=== PATIENT | female | born 1945 | race Caucasian/White ===

== ENCOUNTER 2020-06-24 12:45 | Observation (INO) | payer MEDICARE ==
[~2020-06-24] VITALS: Ht 154.9 cm; Wt 83.0 kg
[~2020-06-24 12:45] MED LIST: ASPIR 8181 MG PO; ATENOLOL50 MG PO; AZO CRANBERRY1 EACH PO; FENOFIBRATE160 MG PO; FUROSEMIDE40 MG PO; HYDROCHLOROTHIA25 MG PO; MIRAPEX0.25 MG PO; MYRBETRIQ50 MG PO; OXYBUTYNIN CHLOR5 MG PO; POTASSIUM CHLO20 ME1 PO; SIMVASTATIN40 MG PO; SMZ/TMP PO; [UNRECOGNIZED DRUG - OTHER] PO
--- OUTSIDE RECORDS SUMMARY | 2020-06-24 13:19 | XMS REPORT | Clinical Summary ---
Author Author [facility] Organization [facility] Address Unknown Phone Unavailable Care Team Providers Care Accounts Clerk Name Role Phone Napoleon Ford MD PCP Allergies No Known Active Allergies Medications End Date Status Medication Sig Dispensed Refills Start Date Active digOXIN (LANOXIN) 125 mcg Take 125 mcg 0 (0.125 mg) tablet by mouth 0 daily. Active atenoloL-chlorthalidone daily. 0 (TENORETIC) 50-25 mg per 0 tablet Active furosemide (LASIX) 40 mg Take 40 mg by 0 tablet mouth every other day. Active aspirin (ECOTRIN) 81 MG Take 81 mg by 0 enteric coated tablet mouth daily. Active potassium chloride Take 20 mEq 0 (KLOR-CON) 20 mEq packet by mouth once. Active magnesium oxide 400 mg Take by mouth 0 magnesium tablet daily. Active TURMERIC ORAL Take by mouth 0 daily. Active glucosam/chond-msm1/C/man Take by mouth 0 g/bor daily. ([id number] COMPLEX ORAL) Active calcium carbonate Take by mouth 0 (CALCIUM 500 ORAL) daily. Active multivitamin (THERAGRAN) Take 1 tablet 0 tablet by mouth daily. Active Lactobac no.41/Bifidobact Take by mouth 0 no.7 (PROBIOTIC-10 ORAL) daily. Active cholecalciferol, vitamin Take 1,000 0 D3, 1,000 unit tablet Units by mouth daily. Active tiZANidine (ZANAFLEX) 2 Take 1 tablet 60 tablet 4 MG tablet PO at night 0 x3 days and then 2 tablets PO at night to continue. Active Problems Problem Noted Date Left leg pain 03/04/2020 Bilateral low back pain with left-sided sciatica 06/2020 Urinary incontinence 03/04/2020 Encounters Care Team Description Date Type Specialty Cathleen Bello MD Radiculopathy, lumbar region; Left leg pain; Other idiopathic peripheral autonomic neuropathy; Neuropathy of left peroneal nerve 03/31/2020 Procedure visit Neurology Stacie Caraballo MA Left leg pain 03/31/2020 Orders Only Neurology 03/31/2020 Travel Stacie Caraballo MA 03/16/2020 Telephone Neurology Stacie Caraballo MA Left leg pain (Primary Dx) 03/11/2020 Orders Only Neurology Cathleen Bello MD Left leg pain; Bilateral low back pain with left-sided sciatica, unspecified chronicity; Urinary incontinence, unspecified type 03/09/2020 Hospital Radiology Encounter 03/09/2020 Travel 03/06/2020 Travel Cathleen Bello MD Left leg pain (Primary Dx); Bilateral low back pain with left-sided sciatica, unspecified chronicity; Urinary incontinence, unspecified type 03/04/2020 Office Visit Neurology after 06/24/2019 Family History Medical History Relation Name Comments Diabetes Brother Heart attack Brother No Known Problems Father Diabetes Mother Heart attack Mother Diabetes Sister Heart attack Sister Relation Name Status Comments Brother Father Mother (Age 66) Sister Social History Date Tobacco Use Types Packs/Day Years Used Quit: 1999 Former Smoker Smokeless Tobacco: Never Used Drinks/Week oz/Week Comments Alcohol Use Never Alcohol Habits Answer Date Recorded How often do you have a drink containing alcohol? Never 03/03/2020 How many drinks containing alcohol do you have on No t asked a typical day when you are drinking? How often do you have six or more drinks on one Not asked occasion? Sex Assigned at Date Recorded Not on file Last Filed Vital Signs Reading Time Taken Comments Vital Sign 133/81 03/04/2020 10:18 AM CDT Blood Pressure 66 03/04/2020 10:18 AM CDT Pulse - - Temperature - - Respiratory Rate - - Oxygen Saturation - - Inhaled Oxygen Concentration 83 kg (183 lb) 03/04/2020 10:18 AM CDT Weight 154.9 cm (5' 1") 03/04/2020 10:18 AM CDT Height 34.58 03/04/2020 10:18 AM CDT Body Mass Index Plan of Treatment Care Team Description Date Type Specialty Cathleen Bello MD [address] [address] [phone] 07/28/2020 Office Visit Neurology Health Maintenance Due Date Last Done Comments BREAST CANCER SCREENING 1995 COLONOSCOPY SCREENING 1995 SHINGLES VACCINES (#1) 1995 65+ PNEUMOCOCCAL VACCINE 2010 (1 of 1 - PPSV23) INFLUENZA VACCINE 04/25/2020 Procedures Comments Procedure Name Priority Date/Time Associated Diag nosis CT LUMBAR SPINE WO Routine 03/09/2020 Left leg pa in CONTRAST 6:01 PM CDT Bilateral low back pain with left-sided sciatica, unspecified chronicity Urinary incontinence, unspecified type after 06/24/2019 Results * CT Lumbar Spine Wo Contrast (03/09/2020 6:01 PM CDT) Specimen Narrative Performed At EXAMINATION: CT LUMBAR SPINE WO CONTRAST HM RADIAN T COMPARISON: None CLINICAL HISTORY: M79.605 Pain in lef t leg, M54.42 Lumbago with sciatica left side, Left L5 radiculopathy lo w back pain. COMMENTS: Axial noncontrast CT scan s lices of the lumbar spine were obtained. Sagittal and coronal reconstructions we re obtained. CT imaging was performed with iterative reconstruction technique and/or automated exposure control to reduce ra diation dose. FINDINGS: L5-S1 shows mild vacuum dis c. There is moderate facet disease ligament flavum thickening. There is mi ld disc bulge. There is minimal anterior subluxation of L5 on S1. These findings contribute to mild to moderate canal stenosis. L4-5 shows mild facet disease ligament flavum thickening. There is mild disc bulge. There is mild canal stenosis. L3-4 shows mild vacuum disc. There is m ild disc bulge and facet disease. There is mild right lateral and to lesser deg ree foraminal disc protrusion with very minimal narrowing of the right-sided fo ramen. L2-3 shows mild disc bulge minimal face t disease. Mild vacuum disc. L1-2 shows mild posterior spondylosis. There is minimal facet disease. No definite acute fracture. The inferior aspect of the study demons trates a metallic wire in the mid right sacrum. Recommend clinical correlation. IMPRESSION: Degenerative change. The details can be further evaluated with MRI. [id number] Procedure Note Hm Interface, Radiology Results Incoming - 03/09/2020 6:18 PM CDT EXAMINATION: CT LUMBAR SPINE WO CONTRAST COMPARISON: None CLINICAL HISTORY: M79.605 Pain in left leg, M54.42 Lumbago with sciatica left side, Left L5 radiculopathy low back pain. COMMENTS: Axial noncontrast CT scan slices of the lumbar spine were obtained. Sagittal and coronal reconstructions were obtained. CT imaging was performed with iterative reconstruction technique and/or automated exposure control to reduce radiation dose. FINDINGS: L5-S1 shows mild vacuum disc. There is moderate facet disease ligament flavum thickening. There is mild disc bulge. There is minimal anterior subluxation of L5 on S1. These findings contribute to mild to moderate canal stenosis. L4-5 shows mild facet disease ligament flavum thickening. There is mild disc bulge. There is mild canal stenosis. L3-4 shows mild vacuum disc. There is mild disc bulge and facet disease. There is mild right lateral and to lesser degree foraminal disc protrusion with very minimal narrowing of the right-sided foramen. L2-3 shows mild disc bulge minimal facet disease. Mild vacuum disc. L1-2 shows mild posterior spondylosis. There is minimal facet disease. No definite acute fracture. The inferior aspect of the study demonstrates a metallic wire in the mid right sacrum. Recommend clinical correlation. IMPRESSION: Degenerative change. The details can be further evaluated with MRI. [id number] [facility] Organization Address City/State/ZIP Code P [facility] Number [facility] [address] [place] [address] after 06/24/2019 Insurance Type Payer Benefit Subscriber ID Effective Phone Address Plan / Dates Group PPO HUMANA MEDICARE HUMANA [id number] 2019-P MEDICARE resent PPO/PFFS/E [facility] [id number] Advance Directives For more information, please contact: [phone] Patient Senior Quality Assurance Engineer Explanation Type Date Recorded Advance Directives, 03/09/2020 5:18 PM Living Will and Medical Power of Cigar Packer
--- OUTSIDE RECORDS SUMMARY | 2020-06-24 13:19 | XMS REPORT | Continuity of Care Document ---
Author Author [facility] t Organization [facility] Address [address] [place] [address] Phone Unavailable Care Team Providers Care General Ophthalmologist Name Role Phone Napoleon Ford MD PCP Cathleen Bello MD Attphys Stacie Caraballo MA Attphyjc Unavailable Payers Payer Name Policy Type Policy Number Effective Date Expiration Date S [facility]/PFFS/ERS [id number] 2019 00:00:00 [place] Problems Condition Name Condition Details Condition Category Status Onset Date Resolution Date Last Treatment Date Treating Clinician Comments Source Left leg pain Left leg pain Disease Active 2020-03-04 00:00:00 [place] [place] Bilateral low back pain with left-sided sciatica Bilat eral low back pain with left-sided sciatica Disease Active 2020-03-04 00:00:00 [place] Urinary incontinence Urinary incontinence Disease Active 00:00:00 [place] Allergies, Adverse Reactions, Alerts Allergy Name Allergy Type Status Severity Reaction(s) Onset Date Inacti ve Date Treating Clinician Comments Source No Known Allergies DA Active U 2011-05-23 00:00:00 [facility] Family History Family Member Diagnosis Comments Start Date Stop Date Source Natural brother Diabetes [place] [facility] Natural brother Heart attack [place] Natural father No Known Problems [place] [facility] [facility] Natural mother Diabetes [place] [facility] Natural mother Heart attack [facility] Natural sister Diabetes [place] [facility] Natural sister Heart attack [place] Social History Social Habit Start Date Stop Date Quantity Comments Source History of tobacco use Current smoker [facility] History SDOH Alcohol Std Drinks [facility] Larsenist History SDOH Alcohol Binge [place] Sex Assigned At [place] zabala [facility] Tobacco use and exposure 2020-03-03 00:00:00 2020-03-03 00:00:00 Davi berman used [place] Alcohol intake 2020-03-03 00:00:00 2020-03-03 00:00:00 Lifetime non-drinker (finding) [facility] History SDOH Alcohol Frequency 2020-03-03 00:00:00 2020-03-03 00:00:0 0 1 [place] Smoking Status Start Date Stop Date Source Former smoker 2020-03-03 00:00:00 2020-03-03 00:00:00 [place] Medications Ordered Medication Name Filled Medication Name Start Date Stop Da te Current Medication? Ordering Clinician Indication Dosage Frequency Signature (SIG) Comments Components Source multivitamin (THERAGRAN) tablet 2020-03-04 10:26:52 Yes 1{tbl} QD Take 1 tablet by mouth daily. [facility] [place] Lactobac no.41/Bifidobact no.7 (PROBIOTIC-10 ORAL) 2020-02 10:26:52 Yes Take by mouth daily. [place] cholecalciferol, vitamin D3, 1,000 unit tablet 2020-03-04 10:26: 52 Yes 1000U QD Take 1,000 Units by mouth daily. [place] potassium chloride (KLOR-CON) 20 mEq packet 2020-03-04 10:26:51 Yes 20meq Take 20 mEq by mouth once. H breann [place] magnesium oxide 400 mg magnesium tablet 2020-03-04 10:26:51 Yes Take by mouth daily. [place] TURMERIC ORAL 2020-03-04 10:26:51 Yes Take b y mouth daily. [place] glucosam/chond-msm1/C/[place]/bor ([id number]-BJQEE-PLE COMPLE X ORAL) 2020-03-04 10:26:51 Yes Take by mouth daily. [place] calcium carbonate (CALCIUM 500 ORAL) 2020-03-04 10:26:51 Ye s Take by mouth daily. [place] furosemide (LASIX) 40 mg tablet 2020-03-04 10:26:50 Yes 40mg Q2D Take 40 mg by mouth every other day. [facility] [place] aspirin (ECOTRIN) 81 MG enteric coated tablet 2020-03-04 10:26:5 0 Yes 81mg QD Take 81 mg by mouth daily. [place] tiZANidine (ZANAFLEX) 2 MG tablet 2020-03-04 00:00:00 Yes Take 1 tablet PO at night x3 days and then 2 tablets PO at night to continue. [facility] [place] atenoloL-chlorthalidone (TENORETIC) 50-25 mg per tablet 2020-01-30 00:00:00 Yes daily. [facility] virgen digOXIN (LANOXIN) 125 mcg (0.125 mg) tablet 2020-01-28 00:00:00 Yes 125ug QD Take 125 mcg by mouth daily. [facility] [place] Vital Signs Vital Name Observation Time Observation Value Comments Source Systolic blood pressure 2020-03-04 10:18:00 133 mm[Hg] [place] Diastolic blood pressure 2020-03-04 10:18:00 81 mm[Hg] [place] Heart rate 2020-03-04 10:18:00 66 /min [place] Body height 2020-03-04 10:18:00 154.9 cm [place] Body weight 2020-03-04 10:18:00 83.008 kg [place] BMI 2020-03-04 10:18:00 34.58 kg/m2 [place] [place] Procedures Procedure Date / Time Performed Performing Clinician [facility] e CT LUMBAR SPINE WO CONTRAST 2020-03-09 18:01:30 Jen Bello Plan of Care Planned Activity Planned Date Details Comments Source Future Scheduled Test 2020-04-25 00:00:00 INFLUENZA VACCINE [code = INFLUENZA VACCINE] [place] [place] Future Scheduled Test 2010 00:00:00 65+ PNEUMOCOCCAL V ACCINE (1 of 1 - PPSV23) [code = 65+ PNEUMOCOCCAL VACCINE (1 of 1 - PPSV23)] [facility] [place] Future Scheduled Test 1995 00:00:00 BREAST CANCER SCRE ENING [code = BREAST CANCER SCREENING] [facility] [place] Future Scheduled Test 1995 00:00:00 COLONOSCOPY SCREEN ING [code = COLONOSCOPY SCREENING] [facility] [place] Future Scheduled Test 1995 00:00:00 SHINGLES VACCINES (#1) [code = SHINGLES VACCINES (#1)] [facility] [place] Encounters Start Date/Time End Date/Time Encounter Type Admission Type [facility] Care Department Encounter ID Source 2020-03-31 00:00:00 2020-03-31 00:00:00 Outpatient CATHLEEN RAINEY [facility] [id number] [place] 2020-03-09 00:00:00 2020-03-09 00:00:00 Outpatient CATHLEEN RAINEY [facility] [id number] [place] 2020-03-04 00:00:00 2020-03-04 00:00:00 Outpatient MIGUELINA RAINEYHILA [facility] [id number] [facility] [facility] 2019-03-22 13:59:00 2019-03-22 13:59:00 Emergency E [id number] 2019-03-15 06:09:00 2019-03-15 06:09:00 Outpatient [id number] Results Test Description Test Time Test Comments Results Result Comments Source CT Lumbar Spine Wo Contrast 2020-03-09 18:15:22 Hm Interface, Radiology Results 03/09/2020 6:18 PM CDTEXAMINATION: CT LUMBAR SPINE WO CONTRASTCOMPARISON: NoneCLINICAL HISTORY: M79.605 Pain in left leg, M54.42 Lumbago with sciatica left side, Left L5 radiculopathy low back pain.COMMENTS: Axial noncontrast CT scan slices of the lumbar spine were obtained. Sagittal and coronal reconstructions were obtained.CT imaging was performed with iterative reconstruction technique and/or automated exposure control to reduce radiation dose.FINDINGS: L5-S1 shows mild vacuum disc. There is moderate facet disease ligament flavum thickening. There is mild disc bulge. There is minimal anterior subluxation of L5 on S1. These findings contribute to mild to moderate canal stenosis.L4-5 shows mild facet disease ligament flavum thickening. There is mild disc bulge. There is mild canal stenosis.L3-4 shows mild vacuum disc. There is mild disc bulge and facet disease. There is mild right lateral and to lesser degree foraminal disc protrusion with very minimal narrowing of the right-sided foramen.L2-3 shows mild disc bulge minimal facet disease. Mild vacuum disc.L1-2 shows mild posterior spondylosis. There is minimal facet disease.No definite acute fracture.The inferior aspect of the study demonstrates a metallic wire in the mid right sacrum. Recommend clinical correlation.IMPRESSION: Degenerative change. The details can be further evaluated with MRI.[id number] [facility] [place]
--- NOTE | 2020-06-24 13:22 | Emergency Department Note ---
History of Present Illnes History of Present Illness Chief Complaint: COVID PUI History of Present Illness This is a 74 year old female Chief Complaint Comment PT STATES THAT YESTERDAY SHE STARTED HAVING A DRY COUGH AND FATIGUE. PT STATES THAT TODAY, SHE STILL HAS THE NAGGING DRY COUGH, STATES NOW SHE IS HAVING LEFT SIDED CHEST PAIN THAT RADIATES TO HER LEFT BACK, FATIGUE, MALAISE, AND FEVERS. PT NOTES SHE HAS A HISTORY OF PACEMAKER PLACEMENT. Historian: Patient Arrival Mode: Car Stem Frazer Required: No Onset (how long ago): day(s) Location: Chest Quality: dull Radiation: Reports back Severity: mild Onset quality: gradual Duration (how long): day(s) (1) Timing of current episode: constant Progression: unchanged Chronicity: new Context: Denies recent illness, Denies recent surgery Relieving factors: none Exacerbating factors: none Associated symptoms: Reports fever/chills, Reports other (Cough) Treatments prior to arrival: none Past Medical/Family History Physician Review I have reviewed the patient's past medical and family history. Any updates have been documented here. Past Medical History Recent Fever: Yes Clinical Suspicion of Infectio: No New/Unexplained Change in Ment: No Past Medical History: CHF Other Medical History: PACEMAKER PLACEMENT Past Surgical History: Pacer/AICD Social History Smoking Cessation: Never Smoker Counseling Performed: No Alcohol Use: None Any Illegal Drug Use: No Physically hurt or threatened: No Other Any Pre-Existing Lines (PICC,: No Review of Systems Review of Systems Constitutional: Reports as per HPI, Reports chills, Reports fever EENTM: Reports no symptoms Cardiovascular: Reports as per HPI, Reports chest pain Respiratory: Reports as per HPI, Reports cough Gastrointestinal: Reports no symptoms Genitourinary: Reports no symptoms Musculoskeletal: Reports no symptoms Integumentary: Reports no symptoms Neurological: Reports no symptoms Psychological: Reports no symptoms Endocrine: Reports no symptoms Hematological/Lymphatic: Reports no symptoms Physical Exam Related Data Allergies: Coded Allergies: No Known Allergies (Unverified , 11/02/16) Triage Vital Signs Vital Signs Date Time Temp Pulse Resp B/P (MAP) Pulse Ox O2 Delivery O2 Flow Rate FiO2 06/24/20 12:56 99.4 70 15 152/77 96 Room Air Vital signs reviewed: Yes Physical Exam CONSTITUTIONAL Constitutional: Present well-developed, Present well-nourished HENT HENT: Present normocephalic, Present atraumatic, Present oropharynx clear/moist, Present nose normal HENT L/R: Present left ext ear normal, Present right ext ear normal EYES Eyes: Reports PERRL, Reports conjunctivae normal NECK Neck: Present ROM normal PULMONARY Pulmonary: Present effort normal, Present breath sounds normal CARDIOVASCULAR Cardiovascular: Present regular rhythm, Present heart sounds normal, Present capillary refill normal, Present normal rate GASTROINTESTINAL Abdominal: Present soft, Present nontender, Present bowel sounds normal GENITOURINARY Genitourinary: Present exam deferred SKIN Skin: Present warm, Present dry MUSCULOSKELETAL Musculoskeletal: Present ROM normal NEUROLOGICAL Neurological: Present alert, Present oriented x 3, Present no gross motor or sensory deficits PSYCHOLOGICAL Psychological: Present mood/affect normal, Present judgement normal Procedures 12 Lead ECG Interpretation ECG Interpretation : Stem Frazer: Interpreted by ED physician Date: Jun 24, 2020 Prior ECG tracings: reviewed Rhythm: sinus rhythm Rate: normal BPM: 70 QRS axis: normal ST segments normal: Yes T waves normal: Yes T waves flattening: aVL Assessment & Plan Medical Decision Making MDM 74-year-old female presents for cough, chest pain starting yesterday. Initial differential includes ACS versus coronavirus infection versus influenza versus pneumonia among others. Intervention shows an overall well-appearing female in no acute distress, vital signs stable, within excitable limits. Workup significant for BNP 200. Discuss patient with Dr. Villanueva who is agreed to admit for chest pain. Patient is appropriate for transfer to the floor. Reassessment Reassessment time: 13:22 Reassessment Well appearing, NAD Assessment & Plan Final Impression: (1) Chest pain Depart Disposition: ADMITTED Last Vital Signs Date Time Temp Pulse Resp B/P (MAP) Pulse Ox O2 Delivery O2 Flow Rate FiO2 06/24/20 13:06 67 26 146/75 95 Room Air 06/24/20 12:56 99.4 Home Meds Reported Medications Pramipexole Di-Hcl (MIRAPEX) 0.25 Mg Tablet, 0.5 MG PO DAILY, #30 TAB 11/02/16 [Super Ceramides] No Conflict Check, 2 CAP PO DAILY 11/02/16 Oxybutynin Chloride (OXYBUTYNIN CHLORIDE) 5 Mg Tablet, 5 MG PO DAILY, #30 TAB 11/02/16 Mirabegron (MYRBETRIQ) 50 Mg Tab.er.24h, 1 TAB PO DAILY 2/8/17 Hydrochlorothiazide (HYDROCHLOROTHIAZIDE) 25 Mg Tablet, 25 MG PO DAILY, #30 TAB 11/02/16 Atenolol (ATENOLOL) 50 Mg Tablet, 25 MG PO DAILY 11/02/16 Aspirin (ASPIR 81) 81 Mg Tablet.dr, 1 TAB PO DAILY 11/02/16 [Smz/Tmp] No Conflict Check, 1 TAB PO DAILY 11/02/16 Cranberry/Vit C/L. Sporogenes (AZO CRANBERRY TABLET) 1 Each Tablet, 1 TAB PO DAILY 11/02/16 Potassium Chloride (POTASSIUM CHLORIDE) 20 Meq Tab.er.prt, 1 TAB PO DAILY 11/02/16 Simvastatin (SIMVASTATIN) 40 Mg Tablet, 40 MG PO 2100, #30 TAB 11/02/16 Furosemide (FUROSEMIDE) 40 Mg Tablet, 40 MG PO Daily, #30 TAB 11/02/16 Fenofibrate (FENOFIBRATE) 160 Mg Tablet, 1 TAB PO DAILY 11/02/16 DUANE BOYD MD Jun 24, 2020 13:22
[2020-06-24 13:24] LABS: BASOPHILS % 0.7 % (0.0-1.0); EOSINOPHILS # (AUTO) 0.1 (0.0-0.4); EOSINOPHILS % 2.1 % (0.0-6.0); HEMOGLOBIN 13.4 g/dL (12.0-16.0); LYMPHOCYTES # (AUTO) 1.4 (1.0-3.2); LYMPHOCYTES % 24.2 % (18.0-39.1); MEAN CORPUSCULAR HEMOGLOBIN 28.7 pg (28-32); MEAN CORPUSCULAR HGB CONC 31.9 g/dL (31-35); MEAN CORPUSCULAR VOLUME 89.9 fL (81-99); MONOCYTES # (AUTO) 0.9 (0.2-0.8); MONOCYTES % 15.7 % (4.4-11.3); NEUTROPHILS # (AUTO) 3.2 (2.1-6.9); NEUTROPHILS % 56.8 % (38.7-80.0); PLATELET COUNT 129 x10e3/uL (140-360); RED BLOOD COUNT 4.67 x10e6/uL (3.6-5.1); RED CELL DISTRIBUTION WIDTH 12.6 % (11.7-14.4)
[2020-06-24 13:31] LABS: INR 1.04; PROTHROMBIN TIME 14.1 seconds (11.9-14.5)
[2020-06-24 13:38] LABS: ALANINE AMINOTRANSFERASE 18 IU/L (0-55); ALBUMIN 4.1 g/dL (3.5-5.0); ALBUMIN/GLOBULIN RATIO 1.7 (0.8-2.0); ALKALINE PHOSPHATASE 76 IU/L (40-150); ANION GAP 14.1 mmol/L (8-16); BLOOD UREA NITROGEN 8 mg/dL (7-26); BUN/CREATININE RATIO 12 (6-25); CALCIUM 8.8 mg/dL (8.4-10.2); CARBON DIOXIDE 27 mmol/L (22-29); CHLORIDE 107 mmol/L (98-107); CREATININE, SERUM 0.67 mg/dL (0.57-1.11); EST GLOMERULAR FILTRATION RATE > 60 ML/MIN (60-); GLUCOSE 90 mg/dL (74-118); LIPASE < 4 U/L (8-78); POTASSIUM 4.1 mmol/L (3.5-5.1); SODIUM 144 mmol/L (136-145)
[2020-06-24] MEDS ORDERED: ASPIRIN 325 MG TAB PO ONE (14:30)
[2020-06-24] MEDS ORDERED: ONDANSETRON HCL INJ 2MG/ML 2ML 2 MG/ML VIAL IV STA (14:38)
--- NOTE | 2020-06-24 14:39 | Diagnostic Imaging Report ---
EXAMINATION: CHEST SINGLE (PORTABLE) INDICATION: Chest pain COMPARISON: None FINDINGS: LINES/TUBES:Left chest pacer. EKG leads overlie the chest. LUNGS:The lungs are moderately inflated. No focal consolidation or pulmonary edema. PLEURA:No pleural effusion or pneumothorax. MEDIASTINUM:The cardiomediastinal silhouette appears normal in size and shape. BONES/SOFT TISSUES:No acute osseous injury. Cervical spinal fusion hardware. ABDOMEN:No free air under the diaphragm. IMPRESSION: No focal pneumonia or pulmonary edema. Signed by: Logan Adkins MD on 06/24/2020 2:35 PM
--- OUTSIDE RECORDS SUMMARY | 2020-06-24 14:39 | XMS REPORT | Continuity of Care Document ---
Author Author [facility] t Organization [facility] Address [address] [place] [address] Phone Unavailable Care Team Providers Care Transformer Repairer Name Role Phone Napoleon Ford MD PCP Cathleen Bello MD Attphys Stacie Caraballo MA Attphyjc Unavailable Payers Payer Name Policy Type Policy Number Effective Date Expiration Date S [facility]NA [facility] PPO/PFFS/ERS [id number] 2019 00:00:00 [place] Problems Condition Name [...] Known Allergies DA Active U 2011-05-23 00:00:00 [facility] Family History Family Member Diagnosis Comments Start Date Stop Date Source Natural brother Diabetes [place] [facility] Natural brother Heart attack [place] [facility] Natural father No Known Problems [facility] Natural mother Diabetes [place] [facility] Natural mother Heart attack [facility] Natural sister Diabetes [place] [facility] Natural sister Heart attack [place] Social History Social Habit Start Date Stop Date Quantity Comments Source History of tobacco use Current smoker [facility] History SDOH Alcohol Std Drinks [facility] History SDOH Alcohol Binge [place] Sex Assigned At [facility] zablaa [facility] Tobacco use and exposure 2020-03-03 00:00:00 2020-03-03 00:00:00 Davi berman used [place] Alcohol intake 2020-03-03 00:00:00 2020-03-03 00:00:00 Lifetime non-drinker (finding) [facility] History SDOH Alcohol Frequency 2020-03-03 00:00:00 2020-03-03 [...] b y mouth daily. [place] glucosam/chond-msm1/C/[place]/bor ([id number] COMPLE X ORAL) 2020-03-04 10:26:51 Yes Take [...] Procedure Date / Time Performed Performing Clinician [facility] e CT LUMBAR SPINE WO CONTRAST [...] End Date/Time Encounter Type Admission Type [facility] Care Department Encounter ID Source 2020-03-31 00:00:00 2020-03-31 00:00:00 Outpatient CATHLEEN RAINEY [facility] [id number] [place] 2020-03-09 00:00:00 2020-03-09 00:00:00 Outpatient CATHLEEN RAINEY [facility] [id number] [place] 2020-03-04 00:00:00 2020-03-04 00:00:00 Outpatient MIGUELINA RAINEYHILA [facility] [id number] [facility] 2019-03-22 13:59:00 2019-03-22 13:59:00 Emergency E [id number] [facility] 2019-03-15 06:09:00 2019-03-15 06:09:00 Outpatient [facility] [id number] [facility] Results Test Description Test Time Test Comments [...] The details can be further evaluated with MRI.[id number] [place]
--- OUTSIDE RECORDS SUMMARY | 2020-06-24 14:39 | XMS REPORT | Clinical Summary ---
Author Author [facility] Organization [place] [facility] Address Unknown Phone Unavailable Care Team Providers Care Lab Clerk Name Role Phone Napoleon Ford MD [...] glucosam/chond-msm1/C/man Take by mouth 0 g/bor daily. ([id number] COMPLEX ORAL) Active calcium carbonate Take by [...] Date Type Specialty Cathleen Bello MD [address] [address] [phone] 07/28/2020 Office Visit Neurology Health Maintenance Due [...] details can be further evaluated with MRI. [id number] Procedure Note Hm Interface, Radiology Results Incoming [...] details can be further evaluated with MRI. [id number] [facility] Organization Address City/State/ZIP Code P [facility] Number [facility] [address] [place] [address] after 06/24/2019 Insurance Type Payer Benefit Subscriber ID Effective Phone Address Plan / Dates Group PPO HUMANA MEDICARE HUMANA [id number] 2019-P MEDICARE resent PPO/PFFS/E [facility] [id number] Advance Directives For more information, please contact: [phone] Patient Date Pitter Explanation Type Date Recorded Advance Directives, 03/09/2020 5:18 PM Living Will and Medical Power of Assurance Specialist
[2020-06-24 15:00] LABS: BILIRUBIN,URINE NEGATIVE (NEGATIVE); CLARITY,URINE SL CLOUDY (CLEAR); COLOR,URINE YELLOW (YELLOW); KETONES,URINE NEGATIVE (NEGATIVE); LEUKOCYTE ESTERASE ,URINE NEGATIVE (NEGATIVE); NITRITE,URINE NEGATIVE (NEGATIVE); PROTEIN,URINE DIPSTICK NEGATIVE (NEGATIVE); URINE UROBILINOGEN 0.2 mg/dL (0.2 - 1)
[2020-06-24 15:12] LABS: AMORPHOUS SEDIMENT,URINE MODERATE (FEW); BACTERIA,URINE MODERATE /HPF; EPITHELIAL CELLS,URINE FEW /LPF
[2020-06-24 15:19] LABS: PLATELET ESTIMATE SLIGHTLY DECREASED; PLATELET MORPHOLOGY COMMENT FEW GIANT; RBC MORPHOLOGY COMMENT NORMAL
--- NOTE | 2020-06-24 16:22 | Diagnostic Imaging Report ---
EXAM: CT Chest WITH contrast- Pulmonary Embolism Protocol INDICATION: Chest pain COMPARISON: None TECHNIQUE: Chest was scanned utilizing a multidetector helical scanner from the lung apex through the level of the diaphragm after administration of IV contrast. Thin section reconstructions were obtained with special concentration on the pulmonary arteries. Coronal and sagittal reformations were obtained. Pulmonary embolism protocol was performed. IV CONTRAST: 100 cc of Isovue 370 RADIATION DOSE: Total DLP: 400 mGy*cm Dose modulation, iterative reconstruction, and/or weight based adjustment of the mA/kV was utilized to reduce the radiation dose to as low as reasonably achievable. COMPLICATIONS: None FINDINGS: LINES/ TUBES: Left chest pacemaker. PULMONARY ARTERIES: No filling defect is identified within the pulmonary arteries to the segmental level. The subsegmental pulmonary arteries are not well opacified. Main pulmonary artery measures 3.0 cm in diameter. No right heart strain. LUNGS AND AIRWAYS: The central airways are patent. No focal consolidation. Mild lower lung predominant interlobular septal thickening compatible with pulmonary interstitial edema. Upper lung predominant centrilobular emphysema. Medial right lower lobe atelectasis/scarring. PLEURA: The pleural spaces are clear. HEART AND MEDIASTINUM: The thyroid gland is normal. No mediastinal, hilar or axillary lymphadenopathy. The heart is normal in size.. There is no pericardial effusion. UPPER ABDOMEN: 4.2 cm hypodensity in segment 4 of the liver, most likely a cyst. No acute findings in the upper abdomen. BONES: No acute osseous injury. No suspicious lytic or blastic lesions. Partially visualized cervical spine fusion hardware. SOFT TISSUES: Unremarkable. IMPRESSION: No pulmonary embolism. No focal pneumonia. Mild pulmonary interstitial edema. Upper lung predominant centrilobular emphysema. Signed by: Logan Adkins MD on 06/24/2020 4:19 PM
[2020-06-24] MEDS ORDERED: SODIUM CHLORIDE 0.9% 50ML 50 ML ONE (16:32)
[2020-06-24] MEDS ORDERED: IOPAMIDOL 370 MG/ML 200 ML INFUS..BTL INJ ONE (16:32)
[2020-06-24 16:45] VITALS: BP 145/71
[2020-06-24 19:10] VITALS: BP 109/58
--- NOTE | 2020-06-24 19:15 | NUR ---
Report received from morning nurse, Pt no acute distress.
--- NOTE | 2020-06-24 19:30 | NUR ---
Dr. Rich rhodes, restarted Lasix and tizanidine home meds, will await for any further orders.
[2020-06-24] MEDS ORDERED: BUMETANIDE2 MG PO (20:09)
[2020-06-24] MEDS ORDERED: MELOXICAM15 MG PO (20:09)
[2020-06-24] MEDS ORDERED: DIGOXIN125 MCG PO (20:09)
[2020-06-24] MEDS ORDERED: TIZANIDINE HCL2 MG PO (20:09)
[2020-06-24] MEDS ORDERED: BYSTOLIC10 MG (20:11)
[2020-06-24] MEDS ORDERED: POTASSIUM CHLO20 ME1 PO (20:11)
[2020-06-24 20:25] LABS: FREE THYROXINE INDEX 1.9673 (1.4-3.8); THYROID STIMULATING HORMONE 0.876 uIU/mL (0.350-4.940)
[2020-06-24] MEDS ORDERED: TIZANIDINE HCL 4 MG TAB PO SCH (21:00)
[2020-06-24] MEDS: ENOXAPARIN SOD INJ 40 MG/0.4 ML SYR SC SCH (21:30)
[2020-06-24] MEDS ORDERED: ALBUTEROL/IPRATROPIUM 3 ML NEB NEB PRN (21:30)
--- NOTE | 2020-06-24 21:30 | NUR ---
Spoke with Dr. Villanueva regarding positive COVID results, ordered antibiotics, O2 protocol with prn albuterol, and consults.
[2020-06-24] MEDS: CEFTRIAXONE SOD 1 GM/NS 50 ML 50 ML IV SCH (22:00)
[2020-06-24] MEDS ORDERED: SODIUM CHLORIDE 0.9% 250ML 250 ML ONE (22:03)
[2020-06-24] MEDS ORDERED: AZITHROMYCIN 500MG/NS 250 ML 250 ML IV SCH (22:30)
[2020-06-24 23:46] VITALS: BP 91/42
[2020-06-24 23:58] VITALS: BP 91/42
--- NOTE | 2020-06-25 02:55 | History and Physical ---
CHIEF COMPLAINT: The patient is a 74-year-old female, works in [employer], comes on with chest pain and fever and congestion. HISTORY OF PRESENT ILLNESS: Ms. Caitie Clements with a history of pacemaker placement, history of question of congestive heart failure, hypertension, and hyperlipidemia, was usual state of health until this morning. The patient was working and the patient felt some amount of chills, comes in with some body aches. The patient was brought into the emergency room and was admitted for chest pain, rule out acute coronary syndrome and to possible COVID exposure, COVID pneumonia and COVID exposure. PAST MEDICAL HISTORY: History of hypertension, history of hyperlipidemia, history of pacemaker placement, history of incontinence, history of hyperkalemia and restless legs syndrome. MEDICATIONS: She takes at home aspirin 81 mg, atenolol 50 mg, fenofibrate 160 mg, furosemide 40 mg, hydrochlorothiazide 25 mg daily, Myrbetriq 50 mg, oxybutynin 5 mg, potassium chloride 20 mEq, Mirapex 0.25, and simvastatin 40. PAST SURGICAL HISTORY: Include hysterectomy, lumbar surgery, and cholecystectomy. SOCIAL HISTORY: No EtOH. No IV drug abuse. REVIEW OF SYSTEMS: Negative for chest pain. Positive for some shortness of breath. Positive for nausea. No vomiting. No diarrhea. No constipation. No rectal bleeding. No hematochezia. No hematemesis. Positive for body aches and also cough and congestion. PHYSICAL EXAMINATION: GENERAL: The patient is alert and oriented x3. VITAL SIGNS: Temperature is 99.2, T-max 99.2, blood pressure is 158/83, pulse oximetry of 96% on room air. HEENT: Normocephalic, atraumatic. Pupils are reactive to light and accommodation. LUNGS: Decreased air entry into all lung espinosa. Positive for rhonchi. ABDOMEN: Soft, nontender, and nondistended. EXTREMITIES: No clubbing, no cyanosis, no edema. IMAGING STUDIES: Chest x-ray shows no focal pneumonia or pulmonary edema and chest CT confirms this mild pulmonary interstitial edema, upper lung predominant centrilobular emphysema. LABORATORY VALUES: White count 5000, hemoglobin 13.4, hematocrit of 42. Chemistry shows sodium of 144, potassium 4.1, BUN of 8 and creatinine 0.67. Serology; coronavirus pending. Urine is moderate bacteria. ASSESSMENT: This is Ms. Caitie Clements with chest pain and plan is to continue monitor. The BNP was 222. Troponin so far has been negative at 0.016. Lipase has been less than 4. PLAN: Continue with Lovenox 40 mg twice a day. We will give the patient some azithromycin and Rocephin, O2 supplementation, possible consult with Cardiology and also a consult with Pulmonary. Further recommendation per clinical course. We will continue to monitor the patient. MD MERRILL Gambino/MODL /[id number]
[2020-06-25 05:29] VITALS: BP 122/67
[2020-06-25 06:47] LABS: BASOPHILS # (AUTO) 0.1 (0.0-0.1); BASOPHILS % 0.9 % (0.0-1.0); EOSINOPHILS # (AUTO) 0.1 (0.0-0.4); EOSINOPHILS % 1.6 % (0.0-6.0); HEMOGLOBIN 12.8 g/dL (12.0-16.0); LYMPHOCYTES % 36.8 % (18.0-39.1); MEAN CORPUSCULAR HEMOGLOBIN 31.1 pg (28-32); MEAN CORPUSCULAR HGB CONC 32.8 g/dL (31-35); MEAN CORPUSCULAR VOLUME 94.7 fL (81-99); MONOCYTES % 17.2 % (4.4-11.3); NEUTROPHILS # (AUTO) 2.4 (2.1-6.9); NEUTROPHILS % 43.1 % (38.7-80.0); PLATELET COUNT 121 x10e3/uL (140-360); RED BLOOD COUNT 4.12 x10e6/uL (3.6-5.1); RED CELL DISTRIBUTION WIDTH 13.2 % (11.7-14.4)
[2020-06-25 07:09] LABS: ANION GAP 14.1 mmol/L (8-16); BLOOD UREA NITROGEN 8 mg/dL (7-26); BUN/CREATININE RATIO 13 (6-25); CALCIUM 8.5 mg/dL (8.4-10.2); CARBON DIOXIDE 25 mmol/L (22-29); CHLORIDE 107 mmol/L (98-107); EST GLOMERULAR FILTRATION RATE > 60 ML/MIN (60-); GLUCOSE 79 mg/dL (74-118); POTASSIUM 4.1 mmol/L (3.5-5.1); SODIUM 142 mmol/L (136-145)
[2020-06-25 08:00] VITALS: BP 134/85
[2020-06-25] MEDS: ENOXAPARIN SOD INJ 40 MG/0.4 ML SYR SC SCH (08:27)
[2020-06-25] MEDS: CEFTRIAXONE SOD 1 GM/NS 50 ML 50 ML IV SCH (08:27)
[2020-06-25 08:46] VITALS: BP 134/85
[2020-06-25] MEDS ORDERED: FUROSEMIDE 20 MG TAB PO SCH (09:00)
[2020-06-25] MEDS ORDERED: NON-FORMULARY MEDICATION (Bumetanide 2 MG) PO SCH (10:00)
[2020-06-25 12:00] VITALS: BP 136/79
--- NOTE | 2020-06-25 12:11 | Consultation ---
DATE OF CONSULTATION: HISTORY OF PRESENT ILLNESS: This is a very pleasant 74-year-old white female. She works in the [employer] store, comes in with 2 days of some fever, some cough. The patient has no shortness of breath. She had body aches. She was tested for COVID-19 two months ago and she was fine. She felt really bad yesterday, came here and was admitted. She does not recall specific exposure, but she is around a lot of people at work and the patient came here. She is on IV fluid. She is not hypoxemic. Her cough and little bit fever are main complaint, and just not feeling well. Started on IV fluids, she is feeling better. PAST MEDICAL HISTORY: Hypertension, hyperlipidemia, and pacemaker placement. PAST SURGICAL HISTORY: Pacemaker placement. ALLERGIES: NKA. SOCIAL HISTORY: There is no smoking, drug abuse, or alcohol abuse. PAST SURGICAL HISTORY: Hysterectomy, lumbar surgery, and cholecystectomy. HOME MEDICATIONS: She is on aspirin, atenolol, fenofibrate, furosemide, hydrochlorothiazide, Myrbetriq, oxybutynin, Mirapex, and simvastatin. REVIEW OF SYSTEMS: At the present time, there is some cough and not feeling well. She said she feels feverish, however, since she came here, there is no fever. There is no shortness of breath. She can walk in the room without any problem. She is on room air with O2 saturation 93 to 97. Her urine showed gram-negative rods. PHYSICAL EXAMINATION: GENERAL: She is currently alert and oriented. VITAL SIGNS: Stable, currently afebrile. HEENT: She is not icteric. NECK: Supple. CHEST: Clear. HEART: S1 and S2. ABDOMEN: Soft. Bowel sounds present. EXTREMITIES: No edema. SKIN: No rash. IMPRESSION: Urinary tract infection, currently on Rocephin. Can discontinue dexamethasone. Continue Rocephin. Continue supportive care. We will reassess in the morning. MD YASMINE Villasenor/DIXIE /[id number]
--- NOTE | 2020-06-25 14:07 | Consultation ---
DATE OF CONSULTATION: 06/25/2020 REASON FOR CONSULTATION: Chest pain. CHIEF COMPLAINT: Fevers, cough, and chest pain. HISTORY OF PRESENT ILLNESS: This is a 74-year-old female with history of complete heart block status post dual-chamber PPM in 2016, hypertension, hyperlipidemia, restless legs syndrome, and history of left heart catheterization in 2019, reported as minimal CAD. The patient reports being followed by Dr. Og at [facility]. The patient presents to [facility] ER with complaints of cough, fevers, chills, and chest discomfort started on Monday morning while at work. Her symptoms worsened, so she came to the ER for further evaluation, was noted with COVID positive. Also has complaints of chest discomfort on left side radiating into her back, worse with deep breathing. The patient was seen and again complaints of chest pain, shortness of breath, cough, and fevers started on Monday, was noted with COVID positive. The patient reports being followed by Dr. Og at [facility], had a left heart catheterization in 2019, which was reported of mild CAD. PAST MEDICAL HISTORY: Complete heart block status post dual-chamber PPM Medtronic 2016, left heart catheterization in [address] Og reported as minimal CAD, hypertension, hyperlipidemia, and restless legs syndrome. PAST SURGICAL HISTORY: Left heart catheterization , pacemaker implantation dual-chamber Medtronic 2015, hysterectomy, cholecystectomy, and . SOCIAL HISTORY: She is single. She works at [employer]. Denies any alcohol or tobacco use. FAMILY HISTORY: Mother at the age of 66, apparently history of DE. Sister at the age of 63 with history of DE. Brother also at the age of 68, history of DE. Father unknown history. HOME MEDICATIONS: Include aspirin 81 mg daily, digoxin 125 mcg daily, furosemide 20 mg daily, Bystolic 10 mg daily, and potassium chloride 20 mEq daily. ALLERGIES: NO KNOWN ALLERGIES. REVIEW OF SYSTEMS: GENERAL: Denies any weight changes. Positive for fatigue, weakness, fevers, and chills. Denies any night sweats. SKIN: No rashes or bruises. HEENT: Denies any nausea, vomiting, vision changes, blurred vision, double vision, or epistaxis. Positive for sore throat. CARDIAC: Positive for chest pain as per HPI. Positive for dyspnea on exertion. No orthopnea, PND, or lower extremity edema. RESPIRATORY: Positive shortness of breath. Positive for cough, nonproductive. Denies any hemoptysis. GI: Reports good appetite. Denies any nausea, vomiting, diarrhea, constipation, melena, tarry or bloody stools. : Denies any dysuria or hematuria. VASCULAR: Denies any lower extremity edema or claudication. MUSCULOSKELETAL: Generalized muscle weakness. Positive for joint stiffness and back pain. NEUROLOGIC: Denies any tremors, tingling, weakness, paralysis, blackout or seizures. HEMATOLOGY: Denies any anemia or easy bruising. ENDOCRINE: Denies any heat or cold intolerance, polyuria, polydipsia, or polyphagia. PHYSICAL EXAMINATION: VITAL SIGNS: Height 61 inches, weight 183 pounds. Temperature 98.1, pulse 62, respiratory rate 18, blood pressure 134/85, and pulse ox 95% on room air. GENERAL: Appears stated age, reliable informant, in no acute distress. SKIN: No rashes or bruises noted. HEENT: Normocephalic. Pupils are equal and reactive. Extraocular movements intact. Trachea midline. No JVD. No carotid bruits. Oral mucosa pink. HEART: Regular rate and rhythm. Pacemaker in the left chest wall. PMI about 4th and 5th intercostal space. LUNGS: Bilateral breath sounds diminished throughout with intermittent crackles. ABDOMEN: Soft, nontender, and nondistended. No organomegaly noted. MUSCULOSKELETAL: Good muscle strength throughout. No lower extremity edema. VASCULAR: +2 radial pulses bilaterally, +1 DP/PT pulses bilaterally. NEUROLOGIC: Cranial nerves 2 through 12 seem intact. LABORATORY DATA: White count 5, hemoglobin of 12.8, hematocrit 39, and platelets of 121. Chemistry; sodium 142, potassium 4.1, chloride 107, bicarb 25, BUN 8, creatinine 0.6, and glucose 79. Troponin 0.016. TSH 0.8. CT chest showing mild interstitial edema and some upper lobe emphysema changes. EKG showing sinus rhythm with a heart rate 70. ASSESSMENT: 1. COVID-19 positive. 2. Chest pain secondary to above. 3. The patient is status post left heart catheterization in 2019, was reported with mild coronary artery disease. 4. Status post dual-chamber pacemaker implantation 2015, secondary to complete heart block. 5. Hyperlipidemia. 6. Hypertension. PLAN: The patient presents to [facility] ER with cough, fevers, chills, weakness, unable to smell, was positive for COVID, being followed by ID. Management as per ID. Chest pain secondary to COVID-19. Cardiac enzymes strongly negative. EKG without changes suggestive of acute event. Troponin negative. Echo has been done showing preserved LVEF. Continue home cardiac prescriptions. The patient okay to go home when okay with ID and primary service. The patient to follow up with her primary electronic data interchange specialist, Dr. Og. Thank you very much for this consult. Dictated by Jesse Marie NP Evaluated Agree with note Mathieu Castellanos MD DC/DIXIE /[id number]
--- NOTE | 2020-06-25 16:12 | NUR ---
Patient received a discharge order from Dr. Villanueva once Dr. Reid, Dr. Frausto, and cardiology cleared patient for discharge. Patient was given discharge instructions, education, one new prescription (and education with that) and follow up information. Patient verbalized understanding. Patient IV removed at 1530 and covered with a C/D/I dressing. Patient wheeled to friend's car at 1550 at front door and had no other issues or complaints.
--- NOTE | 2020-06-25 17:17 | Consultation ---
DATE OF CONSULTATION: Pulmonary consultation Patient of Dr. Nick Villanueva and Dr. Og. HISTORY OF PRESENT ILLNESS: A [facility] 74-year-old woman, worker at [employer], ill at work with cough. At home, she had fever on the and was taken to the emergency room. She has a history of sick sinus syndrome with pacemaker. History of headaches, dizziness, and pain in the left chest which occasioned her going to the ER. HOME MEDICATIONS: Aspirin, Bumex, digoxin, Bystolic, and tizanidine. PAST MEDICAL HISTORY: She has a pacemaker. SOCIAL HISTORY: Never smoked. Works at [employer]. FAMILY HISTORY: Positive for coronary artery disease. PHYSICAL EXAMINATION: VITAL SIGNS: Temperature 98.5, respirations 20, heart rate 59, and blood pressure 134/80. HEAD: Normocephalic, atraumatic. EYES: Extraocular movements intact. LUNGS: Clear. HEART: Regular rhythm. ABDOMEN: Nontender. EXTREMITIES: Nonedematous. IMPRESSION AND PLAN: Therapy of coronavirus disease-19 pneumonia. Supplemental oxygen as needed. Antibiotics for possible superinfection. Prophylactic Lovenox in moderate dose. Low-dose Decadron. Isolation. Thank you for this kind referral. MD KENDAL Franks/DIXIE /[id number]
--- NOTE | 2020-06-25 18:03 | Progress Note ---
DATE: SUBJECTIVE: The patient came in yesterday with chest pain, also has COVID-19 pneumonia. OBJECTIVE: GENERAL: Currently, she is afebrile, no complaints, breathing normal on room air. VITAL SIGNS: Temperature is 98.9, pulse of 65, respirations of 18, blood pressure is 136/79, pulse oximetry of 95% on room air. HEENT: Normocephalic, atraumatic. Pupils are reactive. CVS: S1 and S2 normal. Regular rate and rhythm. ABDOMEN: Soft, nontender. EXTREMITIES: No clubbing, no cyanosis, no edema. LABORATORY VALUES: White count is 5.5, hemoglobin 12.8 and hematocrit of 39.0. Chemistry shows sodium 142 and potassium 4.1. Serology; coronavirus detected. Coags are essentially normal. Microbiology, gram negative bacilli on urine culture. ASSESSMENT: 1. Ms. Caitie Clements with COVID-19. 2. Gram negative bacilli in the urine with UTI. PLAN: Can be discharged home. The patient is stable on room air 95%, can be discharged home on ciprofloxacin 500 mg twice a day to be followed up with the primary care physician. Strict ER warnings given about hypoxia and also the patient feels more fatigued. The patient has to come back into the ER. Further recommendation per clinical course. We will restart all medications and continue on no medications on discharge. MD MERRILL Gambino/RANJANL /[id number]
[2020-06-26] MEDS ORDERED: ASPIRIN 81 MG CHEW TAB PO SCH (09:00)
[2020-06-26] MEDS ORDERED: NEBIVOLOL 10 MG TAB PO SCH (09:00)
[2020-06-26] MEDS ORDERED: DIGOXIN 0.125 MG TAB PO SCH (09:00)
[2020-06-26] MEDS ORDERED: DEXAMETHASONE 4 MG TAB PO SCH (09:00)
== END 2020-06-25 16:00 | disposition home or self-care (01) ==
LOC: ER 13:17 → ERHOLD 14:25 → IMCU 16:45
PROVIDERS: ADMIT Family Medicine; ATTEND Family Medicine
DX: U07.1 COVID-19 (principal); J12.89 Other viral pneumonia; Z95.0 Presence of cardiac pacemaker; I50.9 Heart failure, unspecified; I11.0 Hypertensive heart disease with heart failure; E78.5 Hyperlipidemia, unspecified; Z79.82 Long term (current) use of aspirin; G25.81 Restless legs syndrome; N39.0 Urinary tract infection, site not specified; I25.10 Atherosclerotic heart disease of native coronary artery without angina pectoris; B96.20 Unspecified Escherichia coli [E. coli] as the cause of diseases classified elsewhere; Z16.12 Extended spectrum beta lactamase (ESBL) resistance
CPT/HCPCS: 36415 ×2; 71045; 71260; 80048; 80053; 81001; 83690; 83880; 84436; 84443; 84479; 84484; 85025 ×2; 85610; 87086; 87186; 93005; 93306; 99284; G0378 ×2; J0456; J0696 ×2; J1650 ×2; J2405; J7050; Q9967; U0002

== ENCOUNTER → 2021-02-23 | Outpatient (CLI) | payer MEDICARE ==
[~2021-02-23] MED LIST changes: +BUMETANIDE2 MG PO; +BYSTOLIC10 MG; +DIGOXIN125 MCG PO; +MELOXICAM15 MG PO; +TIZANIDINE HCL2 MG PO
== END ==
LOC: RAD 08:59
PROVIDERS: ATTEND Urology
DX: N39.0 Urinary tract infection, site not specified (principal); N39.46 Mixed incontinence
CPT/HCPCS: 72170; 72220

== ENCOUNTER → 2021-04-23 | Day surgery (SDC) | payer MEDICARE ==
[2021-04-21 14:44] LABS: BASOPHILS # (AUTO) 0.1 (0.0-0.1); BASOPHILS % 0.6 % (0.0-1.0); EOSINOPHILS # (AUTO) 0.3 (0.0-0.4); HEMOGLOBIN 15.6 g/dL (12.0-16.0); LYMPHOCYTES # (AUTO) 3.3 (1.0-3.2); LYMPHOCYTES % 40.3 % (18.0-39.1); MEAN CORPUSCULAR HEMOGLOBIN 28.6 pg (28-32); MEAN CORPUSCULAR HGB CONC 32.5 g/dL (31-35); MEAN CORPUSCULAR VOLUME 87.9 fL (81-99); MONOCYTES # (AUTO) 0.8 (0.2-0.8); MONOCYTES % 9.5 % (4.4-11.3); NEUTROPHILS # (AUTO) 3.8 (2.1-6.9); NEUTROPHILS % 46.2 % (38.7-80.0); PLATELET COUNT 181 x10e3/uL (140-360); RED BLOOD COUNT 5.46 x10e6/uL (3.6-5.1); RED CELL DISTRIBUTION WIDTH 12.7 % (11.7-14.4)
[2021-04-21 15:04] LABS: ANION GAP 12.8 mmol/L (8-16); CALCIUM 9.5 mg/dL (8.4-10.2); CREATININE, SERUM 0.69 mg/dL (0.57-1.11); POTASSIUM 3.8 mmol/L (3.5-5.1)
[~2021-04-23] MED LIST changes: +ACETAMINOPHEN 1000 MG/100 ML IV ONE; +B&O 60MG R/S 60 MG SUPP PR ONE; +BOTULINUM TOXIN TYPE A 100 UNIT VIAL IM ONE; +BUPIVACAINE HCL 0.5% INJ 30 ML VIAL INJ ONE; -BYSTOLIC10 MG; +BYSTOLIC10 MG PO; +CLINDAMYCIN 300MG 50 ML IV ONE; +CRESTOR10 MG PO; +DEXAMETHASONE SOD PHOS INJ 4 MG/ML VIAL ONE; +EPHEDRINE SULFATE INJ 50 MG/ML VIAL ONE; +FLECAINIDE ACE100 MG PO; +IOPAMIDOL 300MG/ML 50ML INFUS..BTL IV ONE; +LIDOCAINE 2% /EPINEPHRINE 20 ML SDV INJ ONE; +LIDOCAINE HCL 2% LOCAL INJ 5 ML SDV VIAL INJ ONE; +ONDANSETRON HCL INJ 2MG/ML 2ML 2 MG/ML VIAL ONE; +PIPERACILLIN/TAZOBACTAM 3.375 GM VIAL ONE; +PROBIOTIC & AC1 EACH PO; +PROPOFOL IV EMULSION 10 MG/ML 20 ML VIAL ONE; +SEVOFLURANE INHAL SOLN 250 ML PEN BTL ONE; +SODIUM CHLORIDE 0.9% 50ML 50 ML ONE; +SUCCINYLCHOLINE CHLORIDE 20 MG/ML 10ML VIAL ONE; +SUPER B COMPLE1 EACH PO; +TRELEGY ELLIPT1 EACH PEG; +TYLENOL #3 PO; +VITAMIN C1000 MG PO; +VITAMIN D3250 MCG PO; +VITAMIN E400 UNI1 PO; +XARELTO20 MG PO
[2021-04-23 18:05] VITALS: BP 126/72
== END | disposition home or self-care (01) ==
LOC: OR 12:16
PROVIDERS: ATTEND Urology
DX: N39.46 Mixed incontinence (principal); T85.113A Breakdown (mechanical) of implanted electronic neurostimulator, generator, initial encounter; M21.372 Foot drop, left foot; K21.9 Gastro-esophageal reflux disease without esophagitis; J44.9 Chronic obstructive pulmonary disease, unspecified; Z86.16 Personal history of COVID-19; J84.10 Pulmonary fibrosis, unspecified; N39.0 Urinary tract infection, site not specified; Z84.1 Family history of disorders of kidney and ureter; Z80.42 Family history of malignant neoplasm of prostate; Z80.51 Family history of malignant neoplasm of kidney; E66.9 Obesity, unspecified; D44.10 Neoplasm of uncertain behavior of unspecified adrenal gland; N32.81 Overactive bladder; N81.89 Other female genital prolapse; N95.2 Postmenopausal atrophic vaginitis; Z68.33 Body mass index [BMI] 33.0-33.9, adult; Z01.812 Encounter for preprocedural laboratory examination; Z01.818 Encounter for other preprocedural examination
CPT/HCPCS: 36415; 52005; 52287; 64581; 64590; 71046; 74420; 76000; 80048; 85025; 88300; C1758; C1776; J0131; J0330; J0587; J1100; J2001 ×2; J2405; J2543; J2704; L8679; Q9967

== ENCOUNTER → 2021-10-01 | Day surgery (SDC) | payer MEDICARE ==
[~2021-10-01] MED LIST changes: -ACETAMINOPHEN 1000 MG/100 ML IV ONE; -B&O 60MG R/S 60 MG SUPP PR ONE; +BELLADONNA/OPIUM 30 MG SUPP RC ONE; -BUPIVACAINE HCL 0.5% INJ 30 ML VIAL INJ ONE; +CEFTRIAXONE 1 GM VIAL ONE; -CLINDAMYCIN 300MG 50 ML IV ONE; +DEXAMETHASONE SOD PHOS INJ 4 MG/ML SDV ONE; -DEXAMETHASONE SOD PHOS INJ 4 MG/ML VIAL ONE; -EPHEDRINE SULFATE INJ 50 MG/ML VIAL ONE; +FENTANYL CITRATE/PF 100MCG/2 ML INJ ONE; +GENTAMICIN 80MG/NS 100 ML 200 ML IV ONE; -LIDOCAINE 2% /EPINEPHRINE 20 ML SDV INJ ONE; -PIPERACILLIN/TAZOBACTAM 3.375 GM VIAL ONE; +POVIDONE IODINE 0.05% 0.05 % ML PO ONE; -SUCCINYLCHOLINE CHLORIDE 20 MG/ML 10ML VIAL ONE; +TRELEGY ELLIPT1 EACH INH; -TRELEGY ELLIPT1 EACH PEG
[2021-10-01 12:55] VITALS: BP 128/80
== END | disposition home or self-care (01) ==
LOC: OR 07:48
PROVIDERS: ATTEND Urology
DX: N39.41 Urge incontinence (principal); N39.0 Urinary tract infection, site not specified; N81.10 Cystocele, unspecified; N81.6 Rectocele; N95.2 Postmenopausal atrophic vaginitis; Z96.82 Presence of neurostimulator; Z96.0 Presence of urogenital implants; I10 Essential (primary) hypertension; I48.91 Unspecified atrial fibrillation; I48.92 Unspecified atrial flutter; E78.5 Hyperlipidemia, unspecified; J84.10 Pulmonary fibrosis, unspecified; Z01.810 Encounter for preprocedural cardiovascular examination; Z01.812 Encounter for preprocedural laboratory examination; Z20.822 Contact with and (suspected) exposure to COVID-19; Z99.81 Dependence on supplemental oxygen; Z79.02 Long term (current) use of antithrombotics/antiplatelets; Z79.899 Other long term (current) drug therapy; Z95.0 Presence of cardiac pacemaker; Z86.711 Personal history of pulmonary embolism; Z86.16 Personal history of COVID-19; Z98.890 Other specified postprocedural states
CPT/HCPCS: 52005; 52287; 74420; 93005; C1758; J0587; J0696; J1100; J1580; J2001; J2405; J2704; J3010; Q9967; U0002